=== PATIENT | female | born 1995 | race Two or more races ===

== ENCOUNTER 2016-08-14 20:05 | Emergency (ER) | payer OTHER ==
--- NOTE | 2016-08-14 21:24 | EDPHY ---
General Narrative: CHIEF COMPLAINT: Left leg laceration HISTORY OF PRESENT ILLNESS: Patient was carrying glasses at work when 1 of them fell and shattered. One of the pieces of glass struck her on the left anterior sibley distally. This happened within the past 2 hours. No numbness or tingling. Bleeding was minimal stop with pressure. No difficulty dorsiflexing the leg. No pain at rest. No radiating pain. Only painful with palpation and movement. No other associated complaints or modifying factors. Tetanus was updated less than 4 years ago for school. REVIEW OF SYSTEMS: Ten systems reviewed and are negative unless otherwise noted in the HPI EXAMINATION General Appearance: Alert, no distress Cardiovascular: Pulses normal throughout. Symmetric DP pulses 2+. Symmetric PT pulses are 2+. Brisk cap refill Neurological: A&O, sensory symmetric, strength symmetric. Normal proprioception of the great toe. Skin: Warm and dry, no rash. 3 cm oblique laceration over the distal sibley. There is a superficial abrasion above and below this. Laceration does not compromise below the subcutaneous tissue. There is no exposure of the extensor apparatus, fascia or periosteum. No foreign body appreciated. Extremities: Full and symmetric range of motion of the ankle and feet Minimal tenderness over the area of laceration. She has full dorsiflexion eversion, inversion and is neurovascular intact distal to the injury. Psychiatric: Mood and affect normal MDM: 9:08 p.m. Laceration to the left anterior sibley. This is approximately 3 cm in length. Superficial with exposure of the subcutaneous tissue. It does not compromise the fascia or periosteum. Neurovascular intact distally. I have blocked the area with local anesthesia. Proceed with irrigation closure. 9:30 p.m. 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 Small scratch noted. I immediately placed the needle in the sharps container. This never came in contact with the patient after striking my finger. I Discarded the entire suture set and washed my hands thoroughly, and I started with all new materials. All appropriate paperwork and laboratory studies were completed and drawn. 9:45 p.m. Wound has been suture repaired with 6 simple interrupted sutures without complication. Good approximation. Tolerated well. Neurovascular intact. Wound care discussed. Discharged home return here for suture removal in 7-10 days. Sooner for infection. She is comfortable this plan. She has requested liquid antibiotics as she cannot tolerate solid pills. Provided take-home bottle in a prescription for to fill tomorrow. PROCEDURE: Laceration repair Consent: Verbal Location: Left anterior sibley, distal Length of repair: 3 cm Complexity: Simple Layer involvement: Single Anesthesia: Local, 5 mL as of 1% lidocaine plain Irrigation: Extensive Debridement: None Procedure description: After good anesthesia, the wound bed was explored and irrigated. No foreign body noted. Wound was closed with simple interrupted sutures as noted. Good hemostasis and approximation of the wound borders. Tolerated well without complication. Neurovascular intact distal to the laceration after procedure. Suture/Staple material: 4-0 Prolene, simple interrupted x6 Wound care: Routine as discussed Suture/Staple removal: 7-10 Days ED Precautions: Worsening pain. Erythema, edema, cyanosis, pallor, paresthesia or anesthesia. SUPERVISION: This patient was independently evaluated without direct examination by the attending physician. Case was discussed with attending physician. - History Smoking Status: Never smoked - Objective Vital Signs: Initial Vital Signs Temperature (C) 98.6 F 08/14/16 20:12 Heart Rate 73 08/14/16 20:12 Respiratory Rate 20 08/14/16 20:12 Blood Pressure 115/84 H 08/14/16 20:12 O2 Sat (%) 95 08/14/16 20:12 O2 Delivery Mode Room Air Allergies/Adverse Reactions: No Known Allergies Allergy (Unverified 08/14/16 20:11) Home Medications: Medication Instructions Recorded Amox Tr/Potassium Clavulanate 1,000 mg PO BID #1 bottle 08/14/16 [Augmentin 400MG/5ML (*)] Medications Given: Discontinued Medications Amoxicillin/Clavulanate Potassium (Augmentin 400mg/5ml Prepack) 1 btl TAKEHOME EDNOW ONE PRN Reason: Protocol Stop: 08/14/16 21:47 Last Admin: 08/14/16 22:51 Dose: 1 btl Departure - Departure Disposition: Home, Routine, Self-Care Clinical Impression: Leg laceration Condition: Good Instructions: Care For Your Stitches (ED), Laceration (ED) Additional Instructions: Wound care as discussed. Follow up here or with your Worker[facility] location for suture removal in 7-10 days. Return sooner for signs of infection. Referrals: UNKNOWN,[place] [Other] - As per Instructions Physician,Emergency Dept, [Medical Doctor] - As per Instructions Prescriptions: Amox Tr/Potassium Clavulanate [Augmentin 400MG/5ML (*)] 1,000 mg PO BID #1 bottle
[2016-08-14] MEDS ORDERED: AMOX/CLAVUL 400MG/5ML PREPACK BTL TAKEHOME ONE (21:46)
[2016-08-14 22:48] VITALS: BP 126/82; PULSE 88; RESP 18; TEMP 97.9; O2SAT 97
== END 2016-08-14 22:54 | disposition home or self-care (01) ==
PROC: 0HQLXZZ Repair Left Lower Leg Skin, External Approach (ICD-10-PCS; principal; 2016-08-14)
DX: S81.812A Laceration without foreign body, left lower leg, initial encounter (principal); W25.XXXA Contact with sharp glass, initial encounter; Y92.69 Other specified industrial and construction area as the place of occurrence of the external cause; Y99.0 Civilian activity done for income or pay; Y93.89 Activity, other specified

== ENCOUNTER 2017-02-27 19:42 | Emergency (ER) | payer OTHER ==
[2017-02-27] MEDS ORDERED: NS 1,000 ML IV ONE (20:00)
[2017-02-27] MEDS ORDERED: ONDANSETRON 4 MG/2 ML VIAL IVP ONE (20:00)
--- NOTE | 2017-02-27 20:00 | EDPHY ---
H & P Stated Complaint: N,V ABDOMINAL PAIN AND HEADACHE Time Seen by Provider: 02/27/17 19:49 HPI/ROS: HPI: This is a 22-year-old female presents with Chief Complaint: N,V ABDOMINAL PAIN AND HEADACHE Location: GI Quality: Nausea vomiting Duration: Today Signs and Symptoms: no fever, + nausea, + vomiting x 2, no hematemesis, no blood in stool, no abdominal bloating, no diarrhea, no back pain, no urinary symptoms, no indigestion, no chest pain, no shortness of breath, no vaginal discharge, no dyspareunia Timing: Sudden onset Severity: Moderate Context: Patient is generally healthy and is currently on day 2 of her menses that normally lasts 5-7 days who presents with waking up this morning feeling she was hung over. She has multiple complaints but primarily she feels nauseous , vomited x2 over stomach contents, and has lower pelvic cramping pain. Her last pelvic exam and Pap smear were several months ago. She had her IUD removed at that time. She states that her period has been irregular since then. She has no history of ovarian cyst/fibroids/endometriosis. Denies any sexual trauma during intercourse or concern for STDs. No fever/chills/ diarrhea. No recent antibiotic use. No concern for food poisoning. She has been trying to sip liquids and rest today. Modifying Factors: See above Comment: ROS: see HPI Constitutional: No fever, no chills, no weight loss Eyes: No blurred vision Respiratory: No shortness of breath, no cough Cardiovascular: No chest pain, no palpitations Gastrointestinal: No nausea, no vomiting, no diarrhea, no hematemesis, no blood in stool Genitourinary: No dysuria, no blood in urine Extremities: No myalgias, no edema Neurologic: No weakness, no numbness Skin: No rashes, no petechiae Hematologic: No bruising, no bleeding MEDICAL/SURGICAL/SOCIAL HISTORY: Medical history: Generally healthy. Does not take any regular medications. Surgical history: Denies Social history: Employed. CONSTITUTIONAL: Young adult white female, polite and cooperative, awake and alert, no obvious distress HEENT: Atraumatic and normocephalic, PERRL, EOMI. Tympanic membranes clear. Oropharynx clear, no exudate and moist pink mucosa. Airway patent. No lymphadenopathy. No meningismus. Cardiovascular: Normal S1/S2, tachycardia, regular rhythm, without murmur rub or gallop. PULMONARY/CHEST: Symmetrical and nontender. Clear to auscultation bilaterally. Good air movement. No accessory muscle usage. ABDOMEN: Soft, nondistended, moderate suprapubic tenderness, no rebound, no guarding, no peritoneal signs, no masses or organomegaly. No CVAT. PELVIC: normal external genitalia, normal cervix, cervical os was closed, no cervical motion tenderness, no adnexal mass, no discharge, mild amount of bleeding bleeding. The exam was performed with a custodial foreman. EXTREMITIES: 2/2 pulses, no deformities, no clubbing, no cyanosis or edema. NEUROLOGICAL: no focal neuro deficits. GCS 15. SKIN: Warm and dry, no erythema. no rash. Good capillary refill. Source: Patient Exam Limitations: No limitations - Personal History LMP (Females 10-55): Now Current Tetanus/Diphtheria Vaccine: Yes Current Tetanus Diphtheria and Acellular Pertussis (TDAP): Yes - Medical/Surgical History Hx Asthma: No Hx Chronic Respiratory Disease: No Hx Diabetes: No Hx Cardiac Disease: No Hx Renal Disease: No Hx Cirrhosis: No Hx Alcoholism: No Hx HIV/AIDS: No Hx Splenectomy or Spleen Trauma: No Other PMH: ANXIETY - Social History Smoking Status: Never smoked Constitutional: Initial Vital Signs Temperature (C) 37.0 C 02/27/17 19:43 Heart Rate 114 H 02/27/17 19:43 Respiratory Rate 18 02/27/17 19:43 Blood Pressure 106/69 02/27/17 19:43 O2 Sat (%) 96 02/27/17 19:43 O2 Delivery Mode Room Air Allergies/Adverse Reactions: No Known Allergies Allergy (Unverified 08/14/16 20:11) Home Medications: Medication Instructions Recorded Naproxen Sodium [Naproxen Sodium 550 mg PO BID PRN #20 tablet 02/27/17 Ds] Ondansetron Odt [Zofran Odt 4 mg 4 mg PO Q4 PRN #12 tab 02/27/17 (*)] Medical Decision Making - Diagnostics Imaging Results: Imaging Impressions Pelvic/Renal Ultrasound 02/27/17 20:08 Impression: Normal pelvic ultrasound. Findings discussed with Erika Osman PAC at 21:07 hour, 02/27/2017. ED Course/Re-evaluation: Pelvic exam, labs, urinalysis, pelvic ultrasound, IV fluids, IV and oral medications ordered Given 1 L normal saline, IV Zofran and GI cocktail UA shows blood consistent with currently on menses, no signs of infection 2100: Called by Radiology and pelvic ultrasound completely normal Labs reviewed and grossly unremarkable. Pelvic exam unremarkable. Suspect dysmenorrhea secondary to removal of IUD. Advised supportive care and advertising copy writer follow-up. Patient passed p.o. trial prior to discharge Differential Diagnosis: Abdominal pain in a female including but not limited to ovarian cyst, pelvic inflammatory disease, ovarian torsion, urinary tract infection, and appendicitis. - Data Points Laboratory Results: Laboratory Results 02/27/17 20:40 02/27/17 20:40 02/27/17 02/27/17 02/27/17 20:40 20:40 20:40 WBC 7.98 10^3/uL 10^3/uL (3.80-9.50) RBC 4.43 10^6/uL 10^6/uL (4.18-5.33) Hgb 15.4 g/dL g/dL (12.6-16.3) Hct 42.0 % % (38.0-47.0) MCV 94.8 fL fL (81.5-99.8) MCH 34.8 pg H pg (27.9-34.1) MCHC 36.7 g/dL g/dL (32.4-36.7) RDW 11.3 % L % (11.5-15.2) Plt Count 229 10^3/uL 10^3/uL (150-400) MPV 9.6 fL fL (8.7-11.7) Neut % (Auto) 87.2 % H % (39.3-74.2) Lymph % (Auto) 4.5 % L % (15.0-45.0) [place] % (Auto) 7.0 % % (4.5-13.0) Eos % (Auto) 0.6 % % (0.6-7.6) Baso % (Auto) 0.3 % % (0.3-1.7) Nucleat RBC Rel Count 0.0 % % (0.0-0.2) Absolute Neuts (auto) 6.96 10^3/uL H 10^3/uL (1.70-6.50) Absolute Lymphs (auto) 0.36 10^3/uL L 10^3/uL (1.00-3.00) Absolute Monos (auto) 0.56 10^3/uL 10^3/uL (0.30-0.80) Absolute Eos (auto) 0.05 10^3/uL 10^3/uL (0.03-0.40) Absolute Basos (auto) 0.02 10^3/uL 10^3/uL (0.02-0.10) Absolute Nucleated RBC 0.00 10^3/uL 10^3/uL (0-0.01) Immature Gran % 0.4 % % (0.0-1.1) Immature Gran # 0.03 10^3/uL 10^3/uL (0.00-0.10) Sodium 138 mEq/L mEq/L (134-144) Potassium 3.7 mEq/L mEq/L (3.5-5.2) Chloride 103 mEq/L mEq/L (97-110) Carbon Dioxide 21 mEq/l L mEq/l (22-31) Anion Gap 14 mEq/L mEq/L (8-16) BUN 14 mg/dL mg/dL (7-23) Creatinine 0.8 mg/dL mg/dL (0.6-1.0) Estimated GFR > 60 Glucose 90 mg/dL mg/dL (70-100) Calcium 8.8 mg/dL mg/dL (8.5-10.4) Total Bilirubin 1.5 mg/dL H mg/dL (0.1-1.4) Conjugated Bilirubin 0.4 mg/dL mg/dL (0.0-0.5) Unconjugated Bilirubin 1.1 mg/dL mg/dL (0.0-1.1) AST 24 IU/L IU/L (14-46) ALT 24 IU/L IU/L (9-52) Alkaline Phosphatase 74 IU/L IU/L (38-126) Total Protein 6.7 g/dL g/dL (6.3-8.2) Albumin 4.1 g/dL g/dL (3.5-5.0) Lipase 96 IU/L IU/L (23-300) Beta HCG, Qual NEGATIVE Urine Color Urine Appearance Urine pH Ur Specific [place] Urine Protein Urine Ketones Urine Blood Urine Nitrate Urine Bilirubin Urine Urobilinogen Ur Leukocyte Esterase Urine RBC Urine WBC Ur Epithelial Cells Urine Mucus Urine Glucose 02/27/17 20:20 WBC RBC Hgb Hct MCV MCH MCHC RDW Plt Count MPV Neut % (Auto) Lymph % (Auto) [place] % (Auto) Eos % (Auto) Baso % (Auto) Nucleat RBC Rel Count Absolute Neuts (auto) Absolute Lymphs (auto) Absolute Monos (auto) Absolute Eos (auto) Absolute Basos (auto) Absolute Nucleated RBC Immature Gran % Immature Gran # Sodium Potassium Chloride Carbon Dioxide Anion Gap BUN Creatinine Estimated GFR Glucose Calcium Total Bilirubin Conjugated Bilirubin Unconjugated Bilirubin AST ALT Alkaline Phosphatase Total Protein Albumin Lipase Beta HCG, Qual Urine Color YELLOW Urine Appearance HAZY Urine pH 5.0 (5.0-7.5) Ur Specific [place] 1.030 (1.002-1.030) Urine Protein NEGATIVE (NEGATIVE) Urine Ketones 1+ H (NEGATIVE) Urine Blood 2+ H (NEGATIVE) Urine Nitrate NEGATIVE (NEGATIVE) Urine Bilirubin NEGATIVE (NEGATIVE) Urine Urobilinogen NEGATIVE EU EU (0.2-1.0) Ur Leukocyte Esterase NEGATIVE (NEGATIVE) Urine RBC 50-182 /hpf H /hpf (0-3) Urine WBC 1-3 /hpf /hpf (0-3) Ur Epithelial Cells TRACE /lpf /lpf (NONE-1+) Urine Mucus TRACE /lpf /lpf (NONE-1+) Urine Glucose NEGATIVE (NEGATIVE) Medications Given: Discontinued Medications Sodium Chloride (Ns) 1,000 mls @ 0 mls/hr IV EDNOW ONE; Wide Open PRN Reason: Protocol Stop: 02/27/17 20:01 Last Admin: 02/27/17 20:35 Dose: 1,000 mls Ondansetron HCl (Zofran) 4 mg IVP EDNOW ONE Stop: 02/27/17 20:01 Last Admin: 02/27/17 20:35 Dose: 4 mg Departure - Departure Disposition: Home, Routine, Self-Care Clinical Impression: Dysmenorrhea Condition: Good Instructions: Dysmenorrhea (ED) Additional Instructions: Take naproxen twice a day as needed for abdominal cramps. Eat a bland diet. Drink plenty of fluids to prevent dehydration. Apply heat to your lower abdominal area. Follow up with OBGYN in 7-10 days. Referrals: Ana Aguilar MD [Medical Doctor] - As per Instructions Prescriptions: Naproxen Sodium [Naproxen Sodium Ds] 550 mg PO BID PRN #20 tablet PRN Reason: Pain, Moderate Ondansetron Odt [Zofran Odt 4 mg (*)] 4 mg PO Q4 PRN #12 tab PRN Reason: Nausea/Vomiting, Use 1st
[2017-02-27 20:29] LABS: COLOR YELLOW; LEUKOCYTE ESTERASE,URINE NEGATIVE (NEGATIVE); NITRITE,URINE NEGATIVE (NEGATIVE)
[2017-02-27 20:31] LABS: MUCUS TRACE /lpf (NONE-1+); RBC,URINE 50-182 /hpf (0-3)
[2017-02-27 20:43] LABS: % IMMATURE GRANULYOCYTES 0.4 % (0.0-1.1); ABSOLUTE IMMATURE GRANULOCYTES 0.03 10^3/uL (0.00-0.10); ADD DIFF? NO; ADD MORPH? NO; ADD SCAN? NO; ATYPICAL LYMPHOCYTE FLAG 0 (0-99); FRAGMENT RBC FLAG 0 (0-99); HEMOGLOBIN 15.4 g/dL (12.6-16.3); LEFT SHIFT FLG 0 (0-99); LIPEMIA HEMOLYSIS FLAG 90 (0-99); MEAN CELL HEMOGLOBIN 34.8 pg (27.9-34.1); MEAN CELL HEMOGLOBIN CONCENTR. 36.7 g/dL (32.4-36.7); MEAN CELL VOLUME 94.8 fL (81.5-99.8); MEAN PLATELET VOLUME 9.6 fL (8.7-11.7); PLATELET CLUMPS FLAG 10 (0-99); PLATELET COUNT 229 10^3/uL (150-400); RED BLOOD CELL COUNT 4.43 10^6/uL (4.18-5.33); RED CELL DISTRIBUTION WIDTH 11.3 % (11.5-15.2)
[2017-02-27 21:03] LABS: ALANINE AMINOTRANSFERASE 24 IU/L (9-52); ALBUMIN 4.1 g/dL (3.5-5.0); ALKALINE PHOSPHATASE 74 IU/L (38-126); ANION GAP 14 mEq/L (8-16); ASPARTATE AMINOTRANSFERASE 24 IU/L (14-46); BILIRUBIN,TOTAL 1.5 mg/dL (0.1-1.4); BILIRUBIN-CONJUGATED 0.4 mg/dL (0.0-0.5); BILIRUBIN-UNCONJUGATED 1.1 mg/dL (0.0-1.1); CALCIUM 8.8 mg/dL (8.5-10.4); CARBON DIOXIDE 21 mEq/l (22-31); CHLORIDE 103 mEq/L (97-110); CREATININE 0.8 mg/dL (0.6-1.0); GLOMERULAR FILTRATION RATE > 60; GLUCOSE 90 mg/dL (70-100); POTASSIUM 3.7 mEq/L (3.5-5.2); SODIUM 138 mEq/L (134-144); TOTAL PROTEIN 6.7 g/dL (6.3-8.2)
[2017-02-27] MEDS ORDERED: PROMETHAZINE 25 MG PREPACK #4 BTL TAKEHOME ONE (21:44)
[2017-02-27 22:47] VITALS: BP 120/74; PULSE 92; RESP 16; TEMP 98.8; O2SAT 97
== END 2017-02-27 22:43 | disposition home or self-care (01) ==
DX: N94.6 Dysmenorrhea, unspecified (principal); E86.9 Volume depletion, unspecified
CPT/HCPCS: 96374; J2405